=== PATIENT | male | born 1990 | race Two or more races ===

== ENCOUNTER 2020-10-04 14:41 | Emergency (ER) | payer MEDICAID, OTHER ==
[~2020-10-04] VITALS: Ht 170.2 cm; Wt 63.5 kg
[2020-10-04 19:13] VITALS: BP 115/72
== END 2020-10-04 18:40 | disposition home or self-care (01) ==
LOC: ER 14:41
DX: U07.1 COVID-19 (principal); J40 Bronchitis, not specified as acute or chronic; R11.2 Nausea with vomiting, unspecified; R43.9 Unspecified disturbances of smell and taste
CPT/HCPCS: 36415; 71045; 87426